=== PATIENT | female | born 1995 | race Caucasian/White ===

== ENCOUNTER 2020-12-06 19:33 | Observation (INO) | payer MEDICAID ==
[~2020-12-06] VITALS: Ht 160 cm; Wt 78.9 kg
[2020-12-06] MEDS ORDERED: TERBUTALINE SULFATE 1 MG/ML VIAL SUBCUT ONE ×2 (22:15→23:45)
[2020-12-07] MEDS ORDERED: TEMAZEPAM 7.5 MG CAPSULE PO PRN (00:45)
[2020-12-07] MEDS ORDERED: TERBUTALINE SULFATE 1 MG/ML VIAL SUBCUT ONE (00:45)
== END 2020-12-07 14:40 | disposition home or self-care (01) ==
LOC: SPU 19:33
PROVIDERS: ADMIT Specialist; ATTEND Specialist
DX: O26.853 Spotting complicating pregnancy, third trimester (principal); O62.9 Abnormality of forces of labor, unspecified; Z3A.32 32 weeks gestation of pregnancy
CPT/HCPCS: 76805; 76815; 81002; 96372 ×2; G0378; J3105; 59899